=== PATIENT | male | born 1955 | race Caucasian/White ===

== ENCOUNTER 2017-02-20 11:06 | Emergency (ER) | payer OTHER ==
[~2017-02-20] VITALS: Wt 92.0 kg
[2017-02-20] MEDS ORDERED: METH500T PO (11:35)
[2017-02-20] MEDS ORDERED: NAPR-688 PO (11:35)
[2017-02-20] MEDS ORDERED: HYDR-906 PO (11:35)
[2017-02-20] MEDS ORDERED: DIAZ-90 PO (11:35)
--- NOTE | 2017-02-20 11:47 | ERD ---
ER Documentation Chief Complaint Date/Time DATE: 02/20/17 TIME: 11:41 Chief Complaint LOW BACK PAIN RADIATING TO LEFT LEG. NO TRAUMA. NO DYSURIA HPI 62-year-old male complains of right lower back pain rating down his right leg. States that 2 or 3 months ago he was lifting heavy rocks in his yard. He felt okay at the time afterward had a back spasm. This is return in the past few days. Patient himself volunteers that he does not have any urinary changes or numbness. Is able to ambulate. He did call in sick to work yesterday to help the pain ease off while he rested. He did ease off somewhat but he still has some spasm. ROS All systems reviewed and are negative except as per history of present illness. Medications Home Meds Active Scripts Diazepam* (Valium*) 5 Mg Tablet, 5 MG PO ONCE, #2 TAB Prov:MARIAH LE DO 02/20/17 Hydrocodone/Acetaminophen ([place] 5-325 Tablet) 1 Each Tablet, 1 EACH PO Q6, #17 TAB Prov:MARIAH LE DO 02/20/17 Naproxen* (Naproxen*) 500 Mg Tablet, 500 MG PO BID Y for PAIN, #20 TAB Prov:MARIAH LE DO 02/20/17 Methocarbamol* (Robaxin*) 500 Mg Tab, 500 MG PO Q8, #20 TAB Prov:MARIAH LE DO 02/20/17 Physical Exam Vitals Vital Signs Date Time Temp Pulse Resp B/P Pulse Ox O2 Delivery O2 Flow Rate FiO2 02/20/17 11:09 98.5 80 21 160/84 97 Physical Exam Const: [] No distress, standing in room Eyes: Normal Conjunctiva ENT: Normal External Ears, Nose and Mouth. Neck: Full range of motion..~ No meningismus. Skin: No petechiae or rashes Back: No midline or flank tenderness, right lumbar paraspinal muscle spasm with some mild tenderness. Performance tenderness as well. Ext: No cyanosis, or edema Neur: Awake and alert oriented 3, cranial nerves II through XII intact, normal gait Procedures/MDM Lumbar back muscle spasm sciatica. Spine appears to be normal alignment I do not suspect any fracture or cauda equina syndrome. Patient states that he intends to see a chiropractor. I am going to discharge him with muscle relaxer with 1 dose of Valium is as well as Robaxin, naproxen for anti-inflammatory effects, [place] for breaking the cycle of severe pain. Instructed him not to drive on medications other than naproxen. Primary care follow-up in 2-3 days. Return precautions given. Departure Diagnosis: Primary Impression: Sciatica Additional Impression: Muscle spasm of back Condition: Stable Patient Instructions: Back Spasm, No Trauma, Back Pain W/ Sciatica Additional Instructions: Call your primary care doctor TOMORROW for an appointment during the next 2-3 days.See the doctor sooner or return here if your condition worsens before your appointment time. MARIAH LE DO Feb 20, 2017 11:47
== END 2017-02-20 11:50 | disposition home or self-care (01) ==
LOC: FTE 11:06
DX: M54.41 Lumbago with sciatica, right side (principal); M62.830 Muscle spasm of back
CPT/HCPCS: 99284